=== PATIENT | male | born 1970 | race Caucasian/White ===

== ENCOUNTER 2016-11-04 12:31 | Emergency (ER) | payer BC ==
[2016-11-04] MEDS ORDERED: EPINEPHrine 1 MG/10 ML SYR IV ONE ×2 (12:53→18:14)
[2016-11-04] MEDS ORDERED: SOD BICARB 8.4% SYR 50 ML ONE (12:58)
[2016-11-04] MEDS ORDERED: CALCIUM CHLORIDE 100 MG/ML SYR ONE (18:17)
== END 2016-11-04 16:56 | disposition expired ==
LOC: ER 12:31
DX: I46.9 Cardiac arrest, cause unspecified (principal)
CPT/HCPCS: 82947; 92950; 96374; 96375